=== PATIENT | female | born 1970 | race Asian ===

== ENCOUNTER 2025-11-05 21:18 | Emergency (ER) | payer MEDICAID ==
[~2025-11-05] VITALS: Ht 152.4 cm; Wt 64.1 kg
--- NOTE | 2025-11-05 21:52 | Physician Documentation ---
History of Present Illness ~ Chief Complaint: Bloody Stools Stated Complaint: MED REACTION Time Seen by MD: 23:20 HPI This 55-year-old female that presents to the emergency department for evaluation of blood in her stools since Wednesday. Patient reports he was recently started on Trulicity. Patient reports since that time she has episodic abdominal cramping followed by stools with small amounts of blood in them. Patient denies fever chills does report some vomiting denies diarrhea. Patient denies any other symptoms at this time. Medication Reconciliation Allergies: Coded Allergies: No Known Allergies (Unverified , 11/05/25) Physical Exam Vital Signs: Temperature: 98.7, Source: Oral, Heart Rate: 78, Respiratory Rate: 16, BP: 160/101, Pulse Oximetry: 98, Weight: 64.100 Oxygen Flow Rate: 0 Progress Results/Orders Results/Orders Orders - WILIAN RICHEY MD Ct Abdomen Pelvis (11/05/25 23:28) Completed Orders - WILIAN RICHEY MD Hcg, Ur Ql (11/05/25 21:29) Cbc/Diff (11/05/25 21:29) BMP (11/05/25 21:29) Lipase (11/05/25 21:29) CMP (11/05/25 21:29) Ua W/Microscopic, Cult If Ind (11/05/25 22:29) Ct Abdomen Pelvis (11/05/25 23:28) Vital Signs 11/05/25 21:24 Temp 98.7 Pulse 78 Resp 16 B/P (MAP) 160/101 Pulse Ox 98 O2 Flow Rate 0 Laboratory Tests Test 11/05/25 21:42 11/05/25 22:29 White Blood Count 12.2 H Red Blood Count 4.62 Hemoglobin 14.4 Hematocrit 42.1 Mean Corpuscular Volume 91.1 Mean Corpuscular Hemoglobin 31.1 H Mean Corpuscular Hemoglobin Concent 34.1 Red Cell Distribution Width 13.4 Platelet Count 249 Mean Platelet Volume 7.2 L Neutrophils (%) (Auto) 78.7 H Lymphocytes (%) (Auto) 15.5 L Monocytes (%) (Auto) 5.5 Eosinophils (%) (Auto) 0.1 Basophils (%) (Auto) 0.2 Neutrophils # (Auto) 9.6 H Lymphocytes # (Auto) 1.9 Monocytes # (Auto) 0.7 Eosinophils # (Auto) 0.0 Basophils # (Auto) 0.0 CBC Comment Sodium Level 142 Potassium Level 3.5 Chloride Level 105 Carbon Dioxide Level 27.5 Anion Gap 10 Blood Urea Nitrogen 15 Creatinine 0.61 Estimated GFR/1.73 m2 > 90 BUN/Creatinine Ratio 24.6 H Glucose Level 127 H Calcium Level 8.6 Total Bilirubin 0.7 Aspartate Amino Transf (AST/SGOT) 20 Alanine Aminotransferase (ALT/SGPT) 26 Alkaline Phosphatase 121 H Total Protein 8.1 Albumin 3.9 Globulin 4.2 Albumin/Globulin Ratio 0.9 L Lipase 29 Chemistry Comments Urine Specimen Description Voided Urine Color Yellow Urine Clarity Clear Urine pH 6.0 Urine Specific [place] 1.020 Urine Protein Negative Urine Glucose (UA) Negative Urine Ketones Negative Urine Occult Blood Trace-intact Urine Nitrite Negative Urine Bilirubin Negative Urine Urobilinogen 0.2 Urine Leukocyte Esterase Negative Urine RBC 3-10 Urine WBC 0-4 Urine Squamous Epithelial Cells Moderate Urine Bacteria Few Urine Mucus None seen Urine Culture Indicated Not ind Volume Urine Centrifuged 7 ml Urine HCG, Qualitative Negative Urine Comment Low volume Medical Decision Making Additional information obtaine: N/A Findings Patient presents to the emergency room for evaluation of abdominal pain that has per HPI. Differentials include but are not limited to cholecystitis gastritis pancreatitis diverticulitis colitis small-bowel obstruction kidney stone urinary tract infection therefore emergent labs and imaging indicated. CT scan shows colitis. Labs reassuring. Symptomatic treatment only. He had not feel patient requires antibiotics Diff Dx GI Bleed:Consideration: Include: AE fistula, Angiodysplasia, Bleeding diathesis, Blood loss anemia, Carcinoma, Diverticulosis, Diverticulitis, Esophageal varicies, Esophagitis, Gastritis, Gastroenteritis, Inflammatory BD, Lyn-Santo syndrome, Meckel's diverticulum, PUD, Other Departure Disposition: HOME / SELF CARE / HOMELESS Impression: Primary Impression: Non-specific colitis Condition: Stable Discharge Instructions: Colitis Referrals: NO PRIMARY CARE PROVIDER (PCP) Prescriptions ONDANSETRON ODT 4mg tablet (ONDANSETRON ODT) 4 Mg Tab.rapdis 1 TAB PO Q6H PRN PRN for nausea/vomiting for 4 Days, #16 TAB 0 Refills Prov: WILIAN RICHEY MD 11/06/25 Hydrocodone Bit/Acetaminophen 5/325 MG ([place] 5/325 MG) 5 Mg/325 Mg Tablet 1 TAB PO Q4-6 hours PRN for pain, #12 TAB Prov: WILIAN RICHEY MD 11/06/25 Signature Scribe Signature: no scribe Attestation: The note accurately reflects work and decisions made by me.Wilian Richey MD 11/06/25 00:50 KRISHAN SORIANOP Nov 05, 2025 21:52 WILIAN RICHEY MD Nov 06, 2025 00:50
[2025-11-05 21:57] LABS: MEAN PLATELET VOLUME 7.2 FL (7.4-10.4); RED CELL DISTRIBUTION WIDTH 13.4 % (11.5-14.5)
[2025-11-05 22:07] LABS: CREATININE 0.61 MG/DL (0.40-0.90); TOTAL CARBON DIOXIDE 27.5 MMOL/L (24-32); eCRCL 76 ML/MIN; eGFR > 90 ML/MIN
[2025-11-05 22:42] LABS: URINE HCG NEGATIVE (NEG)
[2025-11-05 22:45] LABS: LEUKOCYTE ESTERASE ,URINE NEGATIVE (Neg); NITRITES, URINE NEGATIVE (Neg); OCCULT BLOOD,URINE TRACE-INTACT (Neg)
[2025-11-05 22:51] LABS: UA COLLECTION TYPE VOIDED
[2025-11-05 22:52] LABS: MUCUS STRANDS NONE SEEN /LPF (Neg); SQUAMOUS EPITHELIAL CELL,UR MODERATE /LPF (FEW)
--- NOTE | 2025-11-06 00:40 | RADIOLOGY REPORT ---
Exam: CT CT ABDOMEN PELVIS History: Abdominal pain COMPARISON: None Technique: CT acquisition of the abdomen and pelvis with contrast. Multiplanar reformats were performed by the technologist on a separate workstation. Radiation Dose : 1. Abdomen/Pelvis: CTDIvol 674 mGy, DLP 12 mGy*cm. Findings: Lower Chest: No acute findings. Liver: Normal. Gallbladder and Biliary Tree: Unremarkable Pancreas: Normal. Spleen: Normal. Adrenal Glands: Unremarkable Kidneys: Normal. Bladder: Unremarkable for degree of distention. Pelvic Organs: Unremarkable Bowel: The distal esophagus, stomach, duodenum and small bowel are unremarkable. Normal appendix. Wall thickening of the distal descending colon and majority of the sigmoid colon with mild surrounding stranding. Vasculature: Unremarkable. Lymphadenopathy: No evident adenopathy. Peritoneum: No ascites, free air, or fluid collection. Abdominal Wall: No significant hernia. Musculoskeletal: No acute abnormality. IMPRESSION: 1. Findings compatible with distal colitis. 2. No urinary stone or obstruction. Radiation optimization: All CT scans at this facility use at least one of these dose optimization techniques: automated exposure control mA and/or kV adjustment per patient size (includes targeted exams where dose is matched to clinical indication) or iterative reconstruction.
[2025-11-06] MEDS ORDERED: ONDA-243 PO (00:50)
[2025-11-06] MEDS ORDERED: HYDR-3965 PO (00:50)
[2025-11-06] MEDS: ondansetron 4mg rapidly disintigrating tab PO ONE ×2 (01:05→01:13)
[2025-11-06] MEDS: HYDROcodone/acetaminophen 5mg/325mg tablet PO ONE ×2 (01:05→01:13)
[2025-11-06 01:28] VITALS: BP 146/98; PULSE 96; RESP 14; TEMP 98.7; O2SAT 98
== END 2025-11-06 01:42 | disposition home or self-care (01) ==
LOC: ER 21:19
DX: K52.9 Noninfective gastroenteritis and colitis, unspecified (principal)
CPT/HCPCS: 36415; 74176; 80053; 81001; 81025; 83690; 85025; 99284